=== PATIENT | male | born 1985 | race Caucasian/White ===

== ENCOUNTER 2017-12-17 15:50 | Inpatient (IN) | payer MEDICAID ==
[~2017-12-17] VITALS: Ht 180.3 cm; Wt 85.3 kg
[2017-12-17] MEDS ORDERED: HALO10 PO (16:28)
[2017-12-17] MEDS ORDERED: BENZ1TAB10 PO (16:28)
[2017-12-17] MEDS ORDERED: DIVA500T35 PO (16:28)
[2017-12-17 16:30] VITALS: BP 149/63
[2017-12-17] MEDS ORDERED: HALOPERIDOL 5 MG TABLET PO PRN (17:15)
[2017-12-17 17:41] VITALS: BP 140/89
[2017-12-18 07:05] VITALS: BP 100/60
[2017-12-18] MEDS ORDERED: ACETAMINOPHEN 325 MG TABLET PO PRN (13:45)
[2017-12-18] MEDS ORDERED: IBUPROFEN 400 MG TABLET PO PRN (13:45)
[2017-12-18 16:12] VITALS: BP 129/70
[2017-12-18] MEDS: DIVALPROEX SODIUM 500 MG DR TABLET PO SCH (16:26)
[2017-12-18] MEDS: BENZTROPINE MESYLATE 1 MG TABLET PO SCH (16:26)
[2017-12-18] MEDS: HALOPERIDOL 10 MG TABLET PO SCH (16:26)
[2017-12-19 00:24] VITALS: BP 121/67
[2017-12-19 08:00] VITALS: BP 140/70
[2017-12-19] MEDS: DIVALPROEX SODIUM 500 MG DR TABLET PO SCH ×2 (08:57→16:30)
[2017-12-19] MEDS: BENZTROPINE MESYLATE 1 MG TABLET PO SCH ×2 (08:57→16:30)
[2017-12-19] MEDS: HALOPERIDOL 10 MG TABLET PO SCH (08:57)
[2017-12-19 16:00] VITALS: BP 122/69
[2017-12-19] MEDS: LORazepam 2 MG TABLET PO PRN (16:30)
[2017-12-19] MEDS: HALOPERIDOL 5 MG TABLET PO SCH (16:30)
[2017-12-19] MEDS: MUPIROCIN CALCIUM 2% 22 GM OINTMENT NASAL SCH (16:31)
[2017-12-20] MEDS: LORazepam 2 MG TABLET PO PRN ×3 (07:41→20:42)
[2017-12-20 08:13] VITALS: BP 113/67
[2017-12-20 08:26] LABS: BASOPHILS % (AUTO) 0.4 % (0.0-2.0); EOSINOPHILS % (AUTO) 0.6 % (1.0-6.0); HEMATOCRIT 44.1 % (41-53); HEMOGLOBIN 15.4 g/dL (13.5-17.5); LYMPHOCYTES # (AUTO) 2.1 K/uL (1.0-4.8); LYMPHOCYTES % (AUTO) 33.9 % (22.0-44.0); MEAN CORPUSCULAR HEMOGLOBIN 29.2 pg (26.0-34.0); MEAN CORPUSCULAR HGB CONC 34.8 G/dL (31.0-37.0); MEAN CORPUSCULAR VOLUME 84 fL (80-100); MONOCYTES # (AUTO) 0.6 K/uL (0.1-1.0); MONOCYTES % (AUTO) 10.2 % (2.0-9.0); NEUTROPHILS # (AUTO) 3.4 K/uL (1.8-7.7); NEUTROPHILS % (AUTO) 54.9 % (40.0-70.0); PLATELET COUNT (AUTO) 273 K/uL (150-450); RED BLOOD CELL COUNT(AUTO) 5.26 MIL/uL (4.50-5.90); RED CELL DISTRIBUTION WIDTH 14.1 % (11.5-14.5)
[2017-12-20 08:39] LABS: HEMOGLOBIN A1C 5.1 % (4.5-6.2)
[2017-12-20 08:51] LABS: ALANINE AMINOTRANSFERASE 23 U/L (12-78); ALBUMIN 3.8 g/dL (3.4-5.0); ALKALINE PHOSPHATASE 91 U/L (46-116); ANION GAP 8 mmol/L (8-16); ASPARTATE AMINOTRANSFERASE 17 U/L (15-37); BILIRUBIN,TOTAL 0.3 mg/dL (0.1-1.0); CALCIUM, TOTAL 9.2 mg/dL (8.8-10.5); CARBON DIOXIDE 30 mmol/L (22-29); CHLORIDE 102 mmol/L (98-107); CREATININE 0.65 mg/dL (0.60-1.30); FREE T4 (FREE THYROXINE) 0.78 ng/dL (0.76-1.46); GLOMERULAR FILTR. RATE CALC > 60 mL/min (>60); GLUCOSE,RANDOM 86 mg/dL (70-110); POTASSIUM 4.1 mmol/L (3.5-5.1); SODIUM SERUM 140 mmol/L (136-145); THYROID STIMULATING HORMONE 1.74 uIU/mL (0.36-3.74); TOTAL PROTEIN, SERUM 7.7 g/dL (6.4-8.2); UREA NITROGEN, BLOOD 15 mg/dL (7-18); VALPROIC ACID 43 mcg/mL (50-100)
[2017-12-20] MEDS: DIVALPROEX SODIUM 500 MG DR TABLET PO SCH ×2 (09:39→16:18)
[2017-12-20] MEDS: BENZTROPINE MESYLATE 1 MG TABLET PO SCH ×2 (09:39→16:18)
[2017-12-20] MEDS: HALOPERIDOL 5 MG TABLET PO SCH ×2 (09:40→16:19)
[2017-12-20] MEDS: MUPIROCIN CALCIUM 2% 22 GM OINTMENT NASAL SCH ×2 (10:43→16:19)
[2017-12-20 16:00] VITALS: BP 116/67
[2017-12-20] MEDS: ZOLPIDEM TARTRATE 10 MG TABLET PO PRN (20:42)
[2017-12-21 03:38] VITALS: BP 133/69
[2017-12-21 08:12] VITALS: BP 107/69
[2017-12-21 09:23] LABS: AMPHET/METH SCREEN,URINE NEGATIVE (NEGATIVE); BARBITURATE SCREEN, URINE NEGATIVE (NEGATIVE); BENZODIAZEPINES SCREEN,URINE NEGATIVE (NEGATIVE); CANNABINOID SCREEN,URINE NEGATIVE (NEGATIVE); COCAINE SCREEN,URINE NEGATIVE (NEGATIVE); METHADONE SCREEN, URINE NEGATIVE (NEGATIVE); OPIATE SCREEN,URINE NEGATIVE (NEGATIVE)
[2017-12-21 09:38] LABS: APPEARANCE,URINE CLEAR (CLEAR); BILIRUBIN,URINE NEGATIVE (NEGATIVE); GLUCOSE, URINE (UA) NEGATIVE (NEGATIVE); KETONES,URINE NEGATIVE (NEGATIVE); LEUKOCYTE ESTERASE ,URINE NEGATIVE (NEGATIVE); NITRATE,URINE NEGATIVE (NEGATIVE); OCCULT BLOOD,URINE NEGATIVE (NEGATIVE); PROTEIN,URINE NEGATIVE (NEGATIVE); UROBILINOGEN,URINE 0.2 mg/dL (<=1.0)
[2017-12-21] MEDS: DIVALPROEX SODIUM 500 MG DR TABLET PO SCH ×2 (09:41→16:11)
[2017-12-21] MEDS: MUPIROCIN CALCIUM 2% 22 GM OINTMENT NASAL SCH ×2 (09:41→16:11)
[2017-12-21] MEDS: HALOPERIDOL 5 MG TABLET PO SCH ×2 (09:41→16:11)
[2017-12-21] MEDS: BENZTROPINE MESYLATE 1 MG TABLET PO SCH ×2 (09:41→16:11)
[2017-12-21 09:55] LABS: PHENCYCLIDINE SCREEN,URINE NEGATIVE (NEGATIVE)
[2017-12-21] MEDS: LORazepam 2 MG TABLET PO PRN ×2 (10:53→16:11)
[2017-12-21 16:26] VITALS: BP 115/78
[2017-12-21] MEDS: ZOLPIDEM TARTRATE 10 MG TABLET PO PRN (20:16)
[2017-12-21 21:16] VITALS: BP 119/69
[2017-12-22 06:36] VITALS: BP 120/74
[2017-12-22 08:00] VITALS: BP 110/66
[2017-12-22] MEDS: BENZTROPINE MESYLATE 1 MG TABLET PO SCH ×2 (09:22→16:31)
[2017-12-22] MEDS: MUPIROCIN CALCIUM 2% 22 GM OINTMENT NASAL SCH ×2 (09:22→16:32)
[2017-12-22] MEDS: HALOPERIDOL 5 MG TABLET PO SCH ×2 (09:22→16:31)
[2017-12-22] MEDS: DIVALPROEX SODIUM 500 MG DR TABLET PO SCH ×2 (09:22→16:31)
[2017-12-22] MEDS: LORazepam 2 MG TABLET PO PRN ×2 (09:22→16:32)
[2017-12-22 16:00] VITALS: BP 115/71
[2017-12-23 06:59] VITALS: BP 120/77
[2017-12-23 08:13] VITALS: BP 127/77
[2017-12-23] MEDS: DIVALPROEX SODIUM 500 MG DR TABLET PO SCH ×2 (08:13→16:56)
[2017-12-23] MEDS: LORazepam 2 MG TABLET PO PRN ×4 (08:13→21:05)
[2017-12-23] MEDS: HALOPERIDOL 5 MG TABLET PO SCH ×2 (08:13→16:56)
[2017-12-23] MEDS: BENZTROPINE MESYLATE 1 MG TABLET PO SCH ×2 (08:13→16:56)
[2017-12-23] MEDS: MUPIROCIN CALCIUM 2% 22 GM OINTMENT NASAL SCH ×2 (08:14→16:56)
[2017-12-23 16:00] VITALS: BP 133/68
[2017-12-23] MEDS: ZOLPIDEM TARTRATE 10 MG TABLET PO PRN (21:05)
[2017-12-24 06:57] VITALS: BP 124/79
[2017-12-24 08:10] VITALS: BP 113/61
[2017-12-24] MEDS: CIPROFLOXACIN HCL 0.2%/HYDROCORT 1% 10 ML OTIC SUSPENSION AS SCH ×2 (09:00→09:29)
[2017-12-24] MEDS: BENZTROPINE MESYLATE 1 MG TABLET PO SCH (09:29)
[2017-12-24] MEDS: DIVALPROEX SODIUM 500 MG DR TABLET PO SCH (09:29)
[2017-12-24] MEDS: HALOPERIDOL 5 MG TABLET PO SCH (09:29)
[2017-12-24] MEDS: MUPIROCIN CALCIUM 2% 22 GM OINTMENT NASAL SCH (09:30)
[2017-12-24] MEDS ORDERED: CIPOTIC AS (13:14)
[2017-12-24] MEDS ORDERED: BENZ2TAB10 PO (13:15)
[2017-12-24] MEDS ORDERED: HALO5 PO (13:16)
== END 2017-12-24 14:21 | disposition home or self-care (01) | DRG 750 ==
LOC: B3A 17:09
PROVIDERS: ADMIT Psychiatry & Neurology Child & Adolescent Psychiatry; ATTEND Psychiatry & Neurology Child & Adolescent Psychiatry
DX: F25.1 Schizoaffective disorder, depressive type (principal); Z59.0 Homelessness; B95.62 Methicillin resistant Staphylococcus aureus infection as the cause of diseases classified elsewhere; F19.10 Other psychoactive substance abuse, uncomplicated; Z91.5 Personal history of self-harm; Z79.899 Other long term (current) drug therapy; Z91.013 Allergy to seafood; Z71.51 Drug abuse counseling and surveillance of drug abuser
CPT/HCPCS: 80307; 83036; 84439; 84443; 87081

== ENCOUNTER 2017-12-24 17:26 | Emergency (ER) | payer MEDICAID ==
[~2017-12-24] VITALS: Ht 180.3 cm; Wt 87.3 kg
[~2017-12-24 17:26] MED LIST: BENZ1TAB10 PO; BENZ2TAB10 PO; CIPOTIC AS; DIVA500T35 PO; HALO10 PO; HALO5 PO
[2017-12-24 17:52] LABS: BASOPHILS % (AUTO) 0.6 % (0.0-2.0); EOSINOPHILS % (AUTO) 0.2 % (1.0-6.0); HEMOGLOBIN 14.5 g/dL (13.5-17.5); LYMPHOCYTES # (AUTO) 1.7 K/uL (1.0-4.8); LYMPHOCYTES % (AUTO) 28.9 % (22.0-44.0); MEAN CORPUSCULAR HEMOGLOBIN 29.3 pg (26.0-34.0); MEAN CORPUSCULAR HGB CONC 35.4 G/dL (31.0-37.0); MEAN CORPUSCULAR VOLUME 83 fL (80-100); MONOCYTES # (AUTO) 0.7 K/uL (0.1-1.0); MONOCYTES % (AUTO) 11.9 % (2.0-9.0); NEUTROPHILS # (AUTO) 3.5 K/uL (1.8-7.7); NEUTROPHILS % (AUTO) 58.4 % (40.0-70.0); PLATELET COUNT (AUTO) 235 K/uL (150-450); RED BLOOD CELL COUNT(AUTO) 4.96 MIL/uL (4.50-5.90); RED CELL DISTRIBUTION WIDTH 13.9 % (11.5-14.5)
[2017-12-24 18:13] LABS: ANION GAP 7 mmol/L (8-16); CALCIUM, TOTAL 9.2 mg/dL (8.8-10.5); CARBON DIOXIDE 29 mmol/L (22-29); CHLORIDE 101 mmol/L (98-107); CREATININE 0.74 mg/dL (0.60-1.30); GLOMERULAR FILTR. RATE CALC > 60 mL/min (>60); GLUCOSE,RANDOM 93 mg/dL (70-110); POTASSIUM 3.9 mmol/L (3.5-5.1); SODIUM SERUM 137 mmol/L (136-145); UREA NITROGEN, BLOOD 12 mg/dL (7-18)
[2017-12-24 18:13] LABS: AMPHET/METH SCREEN,URINE NEGATIVE (NEGATIVE); BARBITURATE SCREEN, URINE NEGATIVE (NEGATIVE); BENZODIAZEPINES SCREEN,URINE NEGATIVE (NEGATIVE); CANNABINOID SCREEN,URINE NEGATIVE (NEGATIVE); COCAINE SCREEN,URINE NEGATIVE (NEGATIVE); METHADONE SCREEN, URINE NEGATIVE (NEGATIVE); OPIATE SCREEN,URINE NEGATIVE (NEGATIVE)
[2017-12-24 18:14] LABS: PHENCYCLIDINE SCREEN,URINE NEGATIVE (NEGATIVE)
[2017-12-24 18:19] LABS: ALANINE AMINOTRANSFERASE 18 U/L (12-78); ALBUMIN 3.9 g/dL (3.4-5.0); ALKALINE PHOSPHATASE 86 U/L (46-116); ASPARTATE AMINOTRANSFERASE 14 U/L (15-37); BILIRUBIN,TOTAL 0.2 mg/dL (0.1-1.0); TOTAL PROTEIN, SERUM 7.7 g/dL (6.4-8.2)
[2017-12-24 18:39] LABS: VALPROIC ACID 58 mcg/mL (50-100)
[2017-12-24 20:46] VITALS: BP 129/68
== END 2017-12-24 21:06 | disposition home or self-care (01) ==
LOC: EMS 17:30
DX: F20.9 Schizophrenia, unspecified (principal); F41.9 Anxiety disorder, unspecified; F32.9 Major depressive disorder, single episode, unspecified; Z91.013 Allergy to seafood
CPT/HCPCS: 36415; 80053; 80164; 80307; 85025; 99284; G0480